=== PATIENT | male | born 1995 | race Caucasian/White ===

== ENCOUNTER 2018-12-29 07:01 | Emergency (ER) | payer BC, OTHER ==
[2018-12-29] MEDS ORDERED: Proparacaine 0.5% Ophth Soln 15 ML Bottle EYEBOTH STA (07:04)
[2018-12-29] MEDS ORDERED: Tetracaine HCl/PF 0.5% 4 ML Bottle ONE (07:06)
[2018-12-29] MEDS ORDERED: Tetracaine HCl/PF 0.5% 4 ML Bottle EYEBOTH ONE (07:08)
--- NOTE | 2018-12-29 07:45 | EDM.PDOC ---
ED HPI GENERAL MEDICAL PROBLEM - General Chief Complaint: Eye Problems Stated Complaint: SOMETHING IN RT EYE Time Seen by Provider: 12/29/18 07:41 - History of Present Illness INITIAL COMMENTS - FREE TEXT/NARRATIVE: HISTORY AND PHYSICAL: History of present illness: Patient is 23-year-old white male presents with concern of right eye injury in the form of foreign body Yun at work. He denies direct trauma denies any other concern. Review of systems: As per history of present illness and below otherwise all systems reviewed and negative. Past medical history: As per history of present illness and as reviewed below otherwise noncontributory. Surgical history: As per history of present illness and as reviewed below otherwise noncontributory. Social history: No reported history of drug or alcohol abuse. Family history: As per history of present illness and as reviewed below otherwise noncontributory. Physical exam: HEENT: Atraumatic, normocephalic, pupils reactive, negative for conjunctival pallor or scleral icterus, patient's anterior chambers clear he has found have foreign body residual material in his upper lid with lid eversion and also found to have corneal staining consistent with corneal abrasion at the 7 o' clock position. mucous membranes moist, throat clear, neck supple, nontender, trachea midline. Lungs: Clear to auscultation, breath sounds equal bilaterally, chest nontender. Heart: S1S2, regular, negative for clicks, rubs, or JVD. Abdomen: Soft, nondistended, nontender. Negative for masses or hepatosplenomegaly. Negative for costovertebral tenderness. Pelvis: Stable nontender. Genitourinary: Deferred. Rectal: Deferred. Extremities: Atraumatic, negative for cords or calf pain. Neurovascular unremarkable. Neuro: Awake, alert, oriented. Cranial nerves II through XII unremarkable. Cerebellum unremarkable. Motor and sensory unremarkable throughout. Exam nonfocal. Diagnostics: Corneal staining Therapeutics: Foreign body removal with Q-tip copious irrigation erythromycin ophthalmic ointment Impression: #1 corneal abrasion Definitive disposition and diagnosis as appropriate pending reevaluation and review of above. right eye Pain Score (Numeric/FACES): 7 - Related Data Allergies Allergy/AdvReac Type Severity Reaction Status Date / Time No Known Allergies Allergy Verified 12/29/18 07:07 Home Meds: Home Meds . [No Known Home Meds] 12/29/18 [History] Past Medical History HEENT History: Reports: None Cardiovascular History: Reports: None Respiratory History: Reports: None Gastrointestinal History: Reports: None Genitourinary History: Reports: None Musculoskeletal History: Reports: None Neurological History: Reports: None Psychiatric History: Reports: None Endocrine/Metabolic History: Reports: None Hematologic History: Reports: None Immunologic History: Reports: None Oncologic (Cancer) History: Reports: None Dermatologic History: Reports: None - Past Surgical History Head Surgeries/Procedures: Reports: None HEENT Surgical History: Reports: None Cardiovascular Surgical History: Reports: None Respiratory Surgical History: Reports: None GI Surgical History: Reports: Appendectomy Male Surgical History: Reports: None Endocrine Surgical History: Reports: None Neurological Surgical History: Reports: None Musculoskeletal Surgical History: Reports: None Oncologic Surgical History: Reports: None Dermatological Surgical History: Reports: None Social & Family History - Family History Family Medical History: Noncontributory - Tobacco Use Smoking Status *Q: Never Smoker Second Hand Smoke Exposure: No - Caffeine Use Caffeine Use: Reports: Energy Drinks - Recreational Drug Use Recreational Drug Use: No ED ROS GENERAL - Review of Systems Review Of Systems: ROS reveals no pertinent complaints other than HPI. ED EXAM GENERAL W FULL EYE - Physical Exam Exam: See Below (See dictation) Course - Vital Signs Last Recorded V/S: Last Vital Signs Temp 36.2 C 12/29/18 07:07 Pulse 76 12/29/18 07:07 Resp 18 12/29/18 07:07 BP 129/43 L 12/29/18 07:07 Pulse Ox 98 12/29/18 07:07 - Orders/Labs/Meds Meds: Medications Discontinued Medications Generic Name Dose Route Start Last Admin Trade Name Esther PRN Reason Stop Dose Admin Proparacaine HCl 1 ml 12/29/18 07:04 12/29/18 07:09 Proparacaine 0.5% Ophth Soln EYEBOTH 12/29/18 07:05 Not Given NOW STA Tetracaine HCl Confirm 12/29/18 07:06 12/29/18 07:09 Tetracaine 0.5% Steri-Unit Celestina Administered 12/29/18 07:07 Not Given Dose 4 ml .ROUTE .STK-MED ONE Tetracaine HCl 1 ml 12/29/18 07:08 Tetracaine 0.5% Steri-Unit Celestina EYEBOTH 12/29/18 07:09 ASDIRECTED ONE Departure - Departure Time of Disposition: 07:44 Disposition: Home, Self-Care 01 Condition: Good Clinical Impression: Corneal abrasion - Discharge Information Referrals: PCP,None [Primary Care Provider] - Additional Instructions: The following information is given to patients seen in the emergency department who are being discharged to home. This information is to outline your options for follow-up care. We provide all patients seen in our emergency department with a follow-up referral. The need for follow-up, as well as the timing and circumstances, are variable depending upon the specifics of your emergency department visit. If you don't have a primary care physician on staff, we will provide you with a referral. We always advise you to contact your personal physician following an emergency department visit to inform them of the circumstance of the visit and for follow-up with them and/or the need for any referrals to a consulting specialist. The emergency department will also refer you to a specialist when appropriate. This referral assures that you have the opportunity for followup care with a specialist. All of these measure are taken in an effort to provide you with optimal care, which includes your followup. Under all circumstances we always encourage you to contact your private physician who remains a resource for coordinating your care. When calling for followup care, please make the office aware that this follow-up is from your recent emergency room visit. If for any reason you are refused follow-up, please contact the [facility] emergency department at and asked to speak to the emergency department charge nurse. [facility] [address] [place] [id number] Erythromycin ophthalmic ointment as directed follow-up ophthalmology call in a.m. return as needed as discussed
[2018-12-29] MEDS ORDERED: Erythromycin Base 0.5% Ophth Oint 1 GM Tube EYEBOTH ONE (07:46)
== END 2018-12-29 07:55 | disposition home or self-care (01) ==
LOC: MW.ED 07:01
DX: S05.01XA Injury of conjunctiva and corneal abrasion without foreign body, right eye, initial encounter (principal); X58.XXXA Exposure to other specified factors, initial encounter
CPT/HCPCS: 65220; 99283; A9270

== ENCOUNTER 2019-03-10 13:52 | Emergency (ER) | payer OTHER ==
[2019-03-10] MEDS ORDERED: Ketorolac 60 MG/2 ML SDV IM ONE (14:30)
--- NOTE | 2019-03-10 14:30 | EDM.PDOC ---
ED HPI GENERAL MEDICAL PROBLEM - General Chief Complaint: Upper Extremity Injury/Pain Stated Complaint: ARM INJURY Time Seen by Provider: 03/10/19 14:04 Source of Information: Reports: Patient History Limitations: Reports: No Limitations - History of Present Illness INITIAL COMMENTS - FREE TEXT/NARRATIVE: HISTORY AND PHYSICAL: History of present illness: Patient is a 23-year-old male presents to the ED today with concern of left forearm pain 2 days. Patient states he was at work and was throwing equipment when he started to notice his mid forearm on his left arm started to hurt. Patient states since then he's had occasional shooting pain down to his fingers. Patient denies any direct injury or trauma but states it was happening when he was working. Patient denies any prior injury to the area or any other symptoms at this time. Patient denies fever, chills, chest pain, shortness of breath, or cough. Denies headache, neck stiff ness, change in vision, syncope, or near syncope. Denies nausea, vomiting, abdominal pain, diarrhea, constipation, or dysuria. Has not noted any blood in urine or stool. Patient has been eating and drinking appropriately. Review of systems: As per history of present illness and below otherwise all systems reviewed and negative. Past medical history: As per history of present illness and as reviewed below otherwise noncontributory. Surgical history: As per history of present illness and as reviewed below otherwise noncontributory. Social history: See social history for further information Family history: As per history of present illness and as reviewed below otherwise noncontributory. Physical exam: General: Patient is alert, oriented, and in no acute distress. Patient sitting comfortably on exam table. HEENT: Atraumatic, normocephalic, pupils equal and reactive bilaterally, negative for conjunctival pallor or scleral icterus, mucous membranes moist, TMs normal bilaterally, throat clear, neck supple, nontender, trachea midline. No drooling or trismus noted. No meningeal signs. No hot potato voice noted. Lungs: Clear to auscultation, breath sounds equal bilaterally, chest nontender. Heart: S1S2, regular rate and rhythm without overt murmur Abdomen: Soft, nondistended, nontender. Negative for masses or hepatosplenomegaly. Negative for costovertebral tenderness. Pelvis: Stable nontender. Genitourinary: Deferred. Rectal: Deferred. Skin: Intact, warm, dry. No lesions or rashes noted. Extremities: Atraumatic, negative for cords or calf pain. Neurovascular unremarkable. No obvious deformities, step-offs, or crepitus on palpation of the left extremity. Mild pain to palpation of the mid left forearm. Radial pulse grossly intact with capillary refill less than 2 seconds. Patient has full range of motion of complete extremity without difficulty or pain. Neuro: Awake, alert, oriented. Cranial nerves II through XII unremarkable. Cerebellum unremarkable. Motor and sensory unremarkable throughout. Exam nonfocal. Notes: Discussed the importance of follow up with a primary care provider. Voices understanding and is agreeable to plan of care. Denies any further questions or concerns at this time. Diagnostics: Forearm x-ray Therapeutics: Toradol Prescription: None Impression: Left forearm injury / pain Plan: 1. Rest, ice, elevate the affected extremity. You can apply ice 15 minutes on, 15 minutes off. 2. Tylenol and/or Ibuprofen as directed for pain management or discomfort. 3. Follow up with the Orthopedic provider/primary care provider as discussed. Return to the ED as needed and as discussed. Definitive disposition and diagnosis as appropriate pending reevaluation and review of above. - Related Data Allergies Allergy/AdvReac Type Severity Reaction Status Date / Time No Known Allergies Allergy Verified 03/10/19 14:24 Home Meds: Home Meds . [No Known Home Meds] 12/29/18 [History] Past Medical History HEENT History: Reports: None Cardiovascular History: Reports: None Respiratory History: Reports: None Gastrointestinal History: Reports: None Genitourinary History: Reports: None Musculoskeletal History: Reports: None Neurological History: Reports: None Psychiatric History: Reports: None Endocrine/Metabolic History: Reports: None Hematologic History: Reports: None Immunologic History: Reports: None Oncologic (Cancer) History: Reports: None Dermatologic History: Reports: None - Infectious Disease History Infectious Disease History: Reports: Chicken Pox - Past Surgical History Head Surgeries/Procedures: Reports: None HEENT Surgical History: Reports: None Cardiovascular Surgical History: Reports: None Respiratory Surgical History: Reports: None GI Surgical History: Reports: Appendectomy Male Surgical History: Reports: None Endocrine Surgical History: Reports: None Neurological Surgical History: Reports: None Musculoskeletal Surgical History: Reports: None Oncologic Surgical History: Reports: None Dermatological Surgical History: Reports: None Social & Family History - Family History Family Medical History: Noncontributory - Tobacco Use Smoking Status *Q: Never Smoker - Caffeine Use Caffeine Use: Reports: Energy Drinks - Recreational Drug Use Recreational Drug Use: No Review of Systems - Review of Systems Review Of Systems: ROS reveals no pertinent complaints other than HPI. ED EXAM, GENERAL - Physical Exam Exam: See Below (See dictation) Course - Vital Signs Last Recorded V/S: Last Vital Signs Temp 36.8 C 03/10/19 14:19 Pulse 93 03/10/19 14:19 Resp 16 03/10/19 14:19 BP 129/77 03/10/19 14:19 Pulse Ox 97 03/10/19 14:19 - Orders/Labs/Meds Meds: Medications Discontinued Medications Generic Name Dose Route Start Last Admin Trade Name Freq PRN Reason Stop Dose Admin Ketorolac Tromethamine 60 mg 03/10/19 14:30 03/10/19 14:39 Toradol IM 03/10/19 14:31 60 mg ONETIME ONE Administration Departure - Departure Time of Disposition: 15:15 Disposition: Home, Self-Care 01 Clinical Impression: Forearm injury Qualifiers: Encounter type: initial encounter Laterality: left Qualified Code(s): S59.912A - Unspecified injury of left forearm, initial encounter - Discharge Information Referrals: PCP,Unknown [Primary Care Provider] - Forms: ED Department Discharge Additional Instructions: The following information is given to patients seen in the emergency department who are being discharged to home. This information is to outline your options for follow-up care. We provide all patients seen in our emergency department with a follow-up referral. The need for follow-up, as well as the timing and circumstances, are variable depending upon the specifics of your emergency department visit. If you don't have a primary care physician on staff, we will provide you with a referral. We always advise you to contact your personal physician following an emergency department visit to inform them of the circumstance of the visit and for follow-up with them and/or the need for any referrals to a consulting specialist. The emergency department will also refer you to a specialist when appropriate. This referral assures that you have the opportunity for follow-up care with a specialist. All of these measure are taken in an effort to provide you with optimal care, which includes your follow-up. Under all circumstances we always encourage you to contact your private physician who remains a resource for coordinating your care. When calling for follow-up care, please make the office aware that this follow-up is from your recent emergency room visit. If for any reason you are refused follow-up, please contact the [facility] Emergency Department at and asked to speak to the emergency department charge nurse. [facility] [address] [place] [id number] [id number] [facility] [address] [place] [address], [address] [place] [address] 1. Rest, ice, elevate the affected extremity. You can apply ice 15 minutes on, 15 minutes off. 2. Tylenol and/or Ibuprofen as directed for pain management or discomfort. 3. Follow up with the Orthopedic provider/primary care provider as discussed. Return to the ED as needed and as discussed.
--- NOTE | 2019-03-10 15:10 | CR ---
HISTORY: Forearm pain. FINDINGS: Two views of the left forearm are provided. No findings for fracture, dislocation or soft tissue abnormality. Subtle linear lucency in the proximal diaphysis of the radius on the AP view most likely represents a blood vessel. Mild negative ulnar variance is present as a normal variation. Dictated by Sharan Benjamin MD @ Mar 10 2019 3:07PM Signed by Dr. Sharan Benjamin @ Mar 10 2019 3:09PM
== END 2019-03-10 15:25 | disposition home or self-care (01) ==
LOC: MW.ED 13:52
DX: S59.912A Unspecified injury of left forearm, initial encounter (principal); Z90.49 Acquired absence of other specified parts of digestive tract; X50.0XXA Overexertion from strenuous movement or load, initial encounter; Y99.0 Civilian activity done for income or pay
CPT/HCPCS: 73090; 96372; 99283; J1885

== ENCOUNTER 2019-11-15 18:53 | Emergency (ER) | payer BC ==
--- NOTE | 2019-11-15 19:19 | EDM.PDOC ---
ED HPI GENERAL MEDICAL PROBLEM - General Chief Complaint: Upper Extremity Injury/Pain Stated Complaint: LT HAND INJURY;MIDDLE FINGER Time Seen by Provider: 11/15/19 19:09 Source of Information: Reports: Patient History Limitations: Reports: No Limitations - History of Present Illness INITIAL COMMENTS - FREE TEXT/NARRATIVE: HISTORY AND PHYSICAL: History of present illness: Patient is a 24-year-old male who presents to the emergency room with complaints of finger injury that occurred this afternoon. Patient reports that a piece of equipment was under pressure and had released and hit him in the finger. He since has noticed some pain and swelling at the middle knuckle site. Denies any other extremity involvement. Offers no systemic complaints. Review of systems: As per history of present illness and below otherwise all systems reviewed and negative. Past medical history: As per history of present illness and as reviewed below otherwise noncontributory. Surgical history: As per history of present illness and as reviewed below otherwise noncontributory. Social history: See social history for further information Family history: As per history of present illness and as reviewed below otherwise noncontributory. Physical exam: General: Well-developed and well-nourished 24-year-old male. Alert and oriented. Nontoxic-appearing and in no acute distress. HEENT: Atraumatic, normocephalic, pupils equal and reactive bilaterally, negative for conjunctival pallor or scleral icterus, mucous membranes moist, trachea midline. No drooling or trismus noted. No meningeal signs. No hot potato voice noted. Lungs: Clear to auscultation, breath sounds equal bilaterally. Heart: S1S2, regular rate and rhythm without overt murmur Abdomen: Soft, nondistended, nontender. Skin: Skin is dirty due to work exposures. Tissue swelling noted at the right MIP joint on the third digit. Otherwise remaining skin is intact, warm, dry. No lesions or rashes noted. Extremities: Soft tissue swelling at the right MIP joint of the third digit. Cap refill less than 3 seconds. Moves all extremities per self without difficulty or deficits, negative for cords or calf pain. Neurovascular unremarkable. Neuro: Awake, alert, oriented. Cranial nerves II through XII unremarkable. Cerebellum unremarkable. Motor and sensory unremarkable throughout. Exam nonfocal. Notes: Shows no fractures. There is some soft tissue swelling. Spoon splint and sho tape was done for supportive care. Supportive care measures were reviewed and discussed. Voices understanding and is agreeable to plan of care. Denies any further questions or concerns at this time. Diagnostics: X-ray Therapeutics: Spoon Splint Prescription: None Impression: Finger Injury Plan: 1. Rest, ice, elevate the affected extremity. Please wear the splint as directed. 2. Tylenol and/or Ibuprofen as needed for pain management. 3. Follow up with the Orthopedic provider as we discussed. Return to the ED as needed and as discussed. Definitive disposition and diagnosis as appropriate pending reevaluation and review of above. left middle finger Pain Score (Numeric/FACES): 5 - Related Data Allergies Allergy/AdvReac Type Severity Reaction Status Date / Time No Known Allergies Allergy Verified 11/15/19 19:03 Home Meds: Home Meds . [No Known Home Meds] 12/29/18 [History] Past Medical History - Past Health History Medical/Surgical History: Denies Medical/Surgical History HEENT History: Reports: None Cardiovascular History: Reports: None Respiratory History: Reports: None Gastrointestinal History: Reports: None Genitourinary History: Reports: None Musculoskeletal History: Reports: None Neurological History: Reports: None Psychiatric History: Reports: None Endocrine/Metabolic History: Reports: None Hematologic History: Reports: None Immunologic History: Reports: None Oncologic (Cancer) History: Reports: None Dermatologic History: Reports: None - Infectious Disease History Infectious Disease History: Reports: Chicken Pox - Past Surgical History Head Surgeries/Procedures: Reports: None HEENT Surgical History: Reports: None Cardiovascular Surgical History: Reports: None Respiratory Surgical History: Reports: None GI Surgical History: Reports: Appendectomy Male Surgical History: Reports: None Endocrine Surgical History: Reports: None Neurological Surgical History: Reports: None Musculoskeletal Surgical History: Reports: None Oncologic Surgical History: Reports: None Dermatological Surgical History: Reports: None Social & Family History - Family History Family Medical History: Noncontributory - Tobacco Use Smoking Status *Q: Never Smoker - Caffeine Use Caffeine Use: Reports: Energy Drinks - Recreational Drug Use Recreational Drug Use: No Review of Systems - Review of Systems Review Of Systems: Comprehensive ROS is negative, except as noted in HPI. ED EXAM, GENERAL - Physical Exam Exam: See Below (See dictation) Course - Vital Signs Last Recorded V/S: Last Vital Signs Temp 99 F 11/15/19 19:01 Pulse 71 02/01/20 19:01 Resp 16 11/15/19 19:01 BP 126/59 L 11/15/19 19:01 Pulse Ox 97 11/15/19 19:01 Departure - Departure Time of Disposition: 19:44 Disposition: Home, Self-Care 01 Clinical Impression: Injury of finger Qualifiers: Encounter type: initial encounter Laterality: right Qualified Code(s): S69.91XA - Unspecified injury of right wrist, hand and finger(s), initial encounter - Discharge Information Referrals: PCP,None [Primary Care Provider] - Forms: ED Department Discharge Additional Instructions: The following information is given to patients seen in the emergency department who are being discharged to home. This information is to outline your options for follow-up care. We provide all patients seen in our emergency department with a follow-up referral. The need for follow-up, as well as the timing and circumstances, are variable depending upon the specifics of your emergency department visit. If you don't have a primary care physician on staff, we will provide you with a referral. We always advise you to contact your personal physician following an emergency department visit to inform them of the circumstance of the visit and for follow-up with them and/or the need for any referrals to a consulting specialist. The emergency department will also refer you to a specialist when appropriate. This referral assures that you have the opportunity for follow-up care with a specialist. All of these measure are taken in an effort to provide you with optimal care, which includes your follow-up. Under all circumstances we always encourage you to contact your private physician who remains a resource for coordinating your care. When calling for follow-up care, please make the office aware that this follow-up is from your recent emergency room visit. If for any reason you are refused follow-up, please contact the [facility] Emergency Department at and asked to speak to the emergency department charge nurse. [facility] [address] [place] [id number] [address] [id number] 1. Rest, ice, elevate the affected extremity. Please wear the splint as directed. 2. Tylenol and/or Ibuprofen as needed for pain management. 3. Follow up with the Orthopedic provider as we discussed. Return to the ED as needed and as discussed. Sepsis Event Note - Evaluation Sepsis Screening Result: No Definite Risk - Focused Exam Vital Signs: Vital Signs Temp Pulse Resp BP Pulse Ox 11/15/19 19:01 99 F 71 16 126/59 L 97 Date Exam was Performed: 11/15/19 Time Exam was Performed: 19:42
--- NOTE | 2019-11-15 19:40 | CR ---
Right third finger: 3 views centered to the right third finger were obtained. Comparison: No previous study. Joint spaces are preserved. Mild soft tissue swelling appears to be present around the PIP joint. No fracture, dislocation or other bony abnormality is appreciated. Impression: 1. Mild soft tissue swelling. 2. No acute bony abnormality is appreciated. Diagnostic code #1 Study was dictated in [place] Standard Time
== END 2019-11-15 20:06 | disposition home or self-care (01) ==
LOC: MW.ED 18:53
DX: S69.91XA Unspecified injury of right wrist, hand and finger(s), initial encounter (principal); W22.8XXA Striking against or struck by other objects, initial encounter
CPT/HCPCS: 73140-26-F2; 73140-F2; 99282; 99283-25

== ENCOUNTER 2023-11-09 21:38 | Emergency (ER) | payer BC, OTHER ==
[2023-11-10] MEDS: Diphtheria,Pertussis(Acell),Tetanus Vaccine 0.5 ML Syringe IM ONE (00:13)
[2023-11-10] MEDS: Bacitracin Oint 1 GM U/D Packet TOP ONE (00:14)
== END 2023-11-10 01:29 | disposition home or self-care (01) ==
LOC: MW.ED 21:38
DX: S62.522A Displaced fracture of distal phalanx of left thumb, initial encounter for closed fracture (principal); Z23 Encounter for immunization; W27.8XXA Contact with other nonpowered hand tool, initial encounter
CPT/HCPCS: 73140-26-FA; 73140-FA; 90471; 90715; 99283; 99283-25